=== PATIENT | female | born 1950 | race Caucasian/White ===

== ENCOUNTER 2018-10-26 15:59 | Emergency (ER) | payer MEDICARE, BC ==
[~2018-10-26] VITALS: Ht 177.8 cm; Wt 64.4 kg
--- OUTSIDE RECORDS SUMMARY | 2018-10-26 17:24 | XMS ---
PreManage Notification: [employer]DE [employer] Events No recent Security Events currently on file CRITERIA MET - [facility] - 2 Visits in 30 Days CARE PROVIDERS CARRIE KOWALSKI [facility] Current PHONE: [phone] DAVE UPT[facility] Internal Medicine Current PHONE: Unknown Fabiola has no Care Guidelines for this patient. [place] VISIT COUNT (12 MO.) 1 Evelio Martinez [address] TOTAL 4 NOTE: Visits indicate total known visits. ED/UCC VISIT TRACKING (12 MO.) 10/26/2018 16:02 [facility] TYPE: Emergency COMPLAINT: - MEDICATION REFILL 10/23/2018 11:57 Evelio TELLES TYPE: Emergency DIAGNOSES: - Dehydration - Needs IV Fluids - Dehydration 07/15/2018 16:18 [facility] TYPE: Emergency DIAGNOSES: - Mouth Pain-Chemo Patient - Candidal stomatitis 06/25/2018 09:18 [facility] TYPE: Urgent Care DIAGNOSES: - Vaginitis - Candidiasis of vulva and vagina - Acute cystitis without hematuria 06/17/2018 08:21 [facility] [place] TYPE: Emergency DIAGNOSES: - Hypokalemia - Pruritis - Disease of pancreas, unspecified - Acute kidney failure, unspecified - Acute cystitis with hematuria - Inflammatory liver disease, unspecified - Hypo-osmolality and hyponatremia - Rash 05/18/2018 09:07 [facility] TYPE: Urgent Care DIAGNOSES: - Wrist Pain - Pain in right wrist INPATIENT VISIT TRACKING (12 MO.) 07/03/2018 06:[facility] DIAGNOSES: - Malignant neoplasm of head of pancreas - Malignant neoplasm of head of pancreas (HCC) (C25.0) 06/17/2018 08:21 [facility] TYPE: [facility] DIAGNOSES: - Acute cystitis with hematuria - Disease of pancreas, unspecified - Acute kidney failure, unspecified - Inflammatory liver disease, unspecified - Hypo-osmolality and hyponatremia - Hypokalemia [email or web address]
== END 2018-10-26 18:35 | disposition home or self-care (01) ==
LOC: ED 15:59
DX: E86.0 Dehydration (principal); C25.9 Malignant neoplasm of pancreas, unspecified; Z88.5 Allergy status to narcotic agent
CPT/HCPCS: 96361; 96374; 99283-25; J7030